=== PATIENT | male | born 1980 | race African-American/Black ===

== ENCOUNTER 2021-01-31 21:07 | Emergency (ER) | payer MEDICAID ==
--- NOTE | 2021-01-31 21:53 | EDM.PDOC ---
ED HPI GENERAL MEDICAL PROBLEM - General Chief Complaint: General Stated Complaint: LEFT SIDE PAIN Time Seen by Provider: 01/31/21 21:42 Source of Information: Reports: Patient History Limitations: Reports: Language Barrier, Other (Patient is new to the area and is a relatively poor historian and cannot say exactly which medications he takes) - History of Present Illness INITIAL COMMENTS - FREE TEXT/NARRATIVE: 40-year-old gentleman new to the area came to the emergency department due to a 2-day history of left sided abdominal/flank pain. Past medical history is significant for a stroke 1 year ago that left him with weakness on the left side of his body. He states that he recently moved to the area and has been in the car quite a bit. He also has been moving and lifting heavier objects than he normally does. He states that the pain has been present for 2 days but was so severe last night that he did not sleep well. He came to the emergency department today because he had difficulty sleeping and the pain has gotten actually worse. Also complains of mild chest pain with difficulty breathing and points to the midsternal area. He denied fever, chills, upper respiratory symptoms, change in bowel or bladder habits. He specifically denied dysuria and hematuria. He thinks that it is possible he may have strained or pulled a muscle but he is also concerned about blood clots. lateral side of the Left Lower Abdomen Pain Score (Numeric/FACES): 8 - Related Data Allergies Allergy/AdvReac Type Severity Reaction Status Date / Time No Known Allergies Allergy Verified 01/31/21 21:27 Home Meds: Home Meds . [Unable to Verify Home Med List] 01/31/21 [History] Past Medical History Cardiovascular History: Reports: Hypertension Neurological History: Reports: CVA Psychiatric History: Reports: Depression Social & Family History - Family History Family Medical History: No Pertinent Family History - Tobacco Use Tobacco Use Status *Q: Current Every Day Tobacco User Years of Tobacco use: 1 Packs/Tins Daily: 0.5 - Caffeine Use Caffeine Use: Reports: Tea - Recreational Drug Use Recreational Drug Use: Yes Recreational Drug Type: Reports: Marijuana/Hashish ED ROS GENERAL - Review of Systems Review Of Systems: See Below Constitutional: Reports: No Symptoms HEENT: Reports: No Symptoms, Vertigo Cardiovascular: Reports: Chest Pain Endocrine: Reports: No Symptoms GI/Abdominal: Reports: Abdominal Pain : Reports: No Symptoms Musculoskeletal: Reports: Muscle Pain Skin: Reports: No Symptoms Neurological: Reports: Pre-Existing Deficit, Weakness, Gait Disturbance Psychiatric: Reports: No Symptoms Hematologic/Lymphatic: Reports: No Symptoms Immunologic: Reports: No Symptoms ED EXAM, GENERAL - Physical Exam Exam: See Below Exam Limited By: Language Barrier General Appearance: Alert, Mild Distress Eye Exam: Bilateral Eye: EOMI Head: Atraumatic, Normocephalic Respiratory/Chest: No Respiratory Distress, Lungs Clear Cardiovascular: Regular Rate, Rhythm, No Murmur GI/Abdominal: Normal Bowel Sounds, Tender Back Exam: Normal Inspection. No: CVA Tenderness (R), CVA Tenderness (L) Extremities: Normal Inspection, No Pedal Edema Neurological: Alert, Oriented, CN II-XII Intact, Normal Cognition, Abnormal Gait, Sensory/Motor Deficit, Other (Left-sided weakness) Psychiatric: Normal Affect, Normal Mood Skin Exam: Warm, Dry Course - Vital Signs Text/Narrative:: Review of EKG shows normal sinus rhythm, rate 77, normal axis, likely LVH, nonpathological ST segment elevations in V1 and V2. Patient was given 324 mg chewable aspirin. Review of labs shows mildly elevated D-dimer and creatinine with GFR greater than 60. You have chest x-ray shows no obvious acute process in the lungs, possible mild pulmonary congestion more prominent in the right lower lobe with cardiac size at the upper limits of normal with prominent right ventricle. Wells score of 3. CT of chest, abdomen, pelvis showed no obvious acute abnormalities. Chest x-ray did show more than normal air in the bowel as listed above. Patient's abdominal pain may be related to bowel gas. Last Recorded V/S: Last Vital Signs Temp 36.2 C 01/31/21 21:25 Pulse 87 01/31/21 21:25 Resp 15 01/31/21 21:25 BP 140/84 01/31/21 21:25 Pulse Ox 96 01/31/21 21:25 - Orders/Labs/Meds Orders: Active Orders 24 hr Category Date Time Status CXR [Chest 2V] [CR] Stat Exams 01/31/21 22:00 Taken Chest Abdomen Pelvis w Cont [CT] Stat Exams 02/01/21 00:13 Taken Sodium Chloride 0.9% [Normal Saline] 1,000 ml Med 01/31/21 23:30 Active IV ASDIRECTED EKG 12 Lead [EK] Routine Ther 01/31/21 21:59 Ordered Medication Orders Sodium Chloride (Normal Saline) 1,000 mls @ 999 mls/hr IV ASDIRECTED ASH Last Admin: 01/31/21 23:23 Dose: 999 mls/hr Documented by: YULY Labs: Laboratory Tests 01/31/21 01/31/21 01/31/21 Range/Units 22:10 22:10 22:10 WBC 7.1 (3.2-10.1) x10-3/uL RBC 4.90 (3.90-5.90) x10(6)uL Hgb 14.7 (12.9-17.7) g/dL Hct 44.1 (38.3-50.1) % MCV 89.9 (80.8-98.7) fL MCH 29.9 (27.0-33.3) pg MCHC 33.3 (28.7-35.3) g/dL RDW 13.8 (12.4-15.0) % Plt Count 222 (117-477) x10(3)uL MPV 7.0 (6.7-11.0) fL Neut % (Auto) 69.4 (40.3-71.8) % Lymph % (Auto) 20.9 (15.8-45.3) % Moca % (Auto) 7.7 (5.5-15.2) % Eos % (Auto) 1.5 (0.1-6.8) % Baso % (Auto) 0.5 (0.3-3.8) % Neut # (Auto) 4.9 (1.7-6.9) x10-3/uL Lymph # (Auto) 1.5 (0.5-4.5) x10-3/uL Moca # (Auto) 0.5 (0.0-1.2) x10-3/uL Eos # (Auto) 0.1 (0.0-0.6) x10-3/uL Baso # (Auto) 0.0 (0.0-0.3) x10-3/uL D-Dimer, Quantitative 0.69 H (0.0-0.59) mg/LFEU Sodium 141 (135-145) mmol/L Potassium 3.7 (3.5-5.3) mmol/L Chloride 102 (100-110) mmol/L Carbon Dioxide 31 (21-32) mmol/L BUN 17 (7-18) mg/dL Creatinine 1.4 H (0.70-1.30) mg/dL Est Cr Clr Drug Dosing 62.66 mL/min Estimated GFR (MDRD) > 60 (>60) BUN/Creatinine Ratio 12.1 (9-20) Glucose 117 H (80-116) mg/dL Calcium 9.4 (8.6-10.2) mg/dL Total Bilirubin 0.6 (0.1-1.3) mg/dL AST 15 (5-25) IU/L ALT 43 H (12-36) U/L Alkaline Phosphatase 76 (56-112) IU/L Troponin I (4.0-60.3) pg/mL NT-Pro-B Natriuret Pep (<=125) pg/mL Total Protein 7.8 (6.0-8.0) g/dL Albumin 3.8 (3.5-5.2) g/dL Globulin 4.0 g/dL Albumin/Globulin Ratio 1.0 Urine Color (YELLOW) Urine Appearance (CLEAR) Urine pH (5.0-6.5) Ur Specific Melvin (1.010-1.025) Urine Protein (NEGATIVE) mg/dL Urine Glucose (UA) (NORMAL) mg/dL Urine Ketones (NEGATIVE) mg/dL Urine Occult Blood (NEGATIVE) Urine Nitrite (NEGATIVE) Urine Bilirubin (NEGATIVE) Urine Urobilinogen (NEGATIVE) mg/dL Ur Leukocyte Esterase (NEGATIVE) U Hyaline Cast (Auto) (NS) Urine RBC (0-5) Urine WBC (0-5) Ur Squamous Epith Cells (NS,R,O) Urine Bacteria (NS) Urine Mucus (NS) 01/31/21 01/31/21 Range/Units 22:10 22:10 WBC (3.2-10.1) x10-3/uL RBC (3.90-5.90) x10(6)uL Hgb (12.9-17.7) g/dL Hct (38.3-50.1) % MCV (80.8-98.7) fL MCH (27.0-33.3) pg MCHC (28.7-35.3) g/dL RDW (12.4-15.0) % Plt Count (117-477) x10(3)uL MPV (6.7-11.0) fL Neut % (Auto) (40.3-71.8) % Lymph % (Auto) (15.8-45.3) % Moca % (Auto) (5.5-15.2) % Eos % (Auto) (0.1-6.8) % Baso % (Auto) (0.3-3.8) % Neut # (Auto) (1.7-6.9) x10-3/uL Lymph # (Auto) (0.5-4.5) x10-3/uL Moca # (Auto) (0.0-1.2) x10-3/uL Eos # (Auto) (0.0-0.6) x10-3/uL Baso # (Auto) (0.0-0.3) x10-3/uL D-Dimer, Quantitative (0.0-0.59) mg/LFEU Sodium (135-145) mmol/L Potassium (3.5-5.3) mmol/L Chloride (100-110) mmol/L Carbon Dioxide (21-32) mmol/L BUN (7-18) mg/dL Creatinine (0.70-1.30) mg/dL Est Cr Clr Drug Dosing mL/min Estimated GFR (MDRD) (>60) BUN/Creatinine Ratio (9-20) Glucose (80-116) mg/dL Calcium (8.6-10.2) mg/dL Total Bilirubin (0.1-1.3) mg/dL AST (5-25) IU/L ALT (12-36) U/L Alkaline Phosphatase (56-112) IU/L Troponin I 5.9 (4.0-60.3) pg/mL NT-Pro-B Natriuret Pep 24 (<=125) pg/mL Total Protein (6.0-8.0) g/dL Albumin (3.5-5.2) g/dL Globulin g/dL Albumin/Globulin Ratio Urine Color Yellow (YELLOW) Urine Appearance Slightly cloudy (CLEAR) Urine pH 5.0 (5.0-6.5) Ur Specific Melvin 1.030 H (1.010-1.025) Urine Protein Negative (NEGATIVE) mg/dL Urine Glucose (UA) Normal (NORMAL) mg/dL Urine Ketones Negative (NEGATIVE) mg/dL Urine Occult Blood Negative (NEGATIVE) Urine Nitrite Negative (NEGATIVE) Urine Bilirubin Negative (NEGATIVE) Urine Urobilinogen 1 H (NEGATIVE) mg/dL Ur Leukocyte Esterase Negative (NEGATIVE) U Hyaline Cast (Auto) Rare H (NS) Urine RBC 0-5 (0-5) Urine WBC 0-5 (0-5) Ur Squamous Epith Cells Occasional (NS,R,O) Urine Bacteria Few H (NS) Urine Mucus Rare H (NS) Meds: Medications Generic Name Dose Route Start Last Admin Trade Name Freq PRN Reason Stop Dose Admin Sodium Chloride 1,000 mls @ 999 mls/hr 01/31/21 23:30 01/31/21 23:23 Normal Saline IV 999 mls/hr ASDIRECTED ASH Administration Discontinued Medications Generic Name Dose Route Start Last Admin Trade Name Freq PRN Reason Stop Dose Admin Aspirin 324 mg 01/31/21 22:34 01/31/21 22:52 Aspirin 81 Mg Tab.Chew PO 01/31/21 22:35 324 mg ONETIME ONE Administration Iopamidol 75 ml 01/31/21 23:31 02/01/21 00:24 Iopamidol 755 Mg/Ml 75 Ml Bottle IV 01/31/21 23:32 Not Given ASDIRECTED ONE Iopamidol 100 ml 02/01/21 00:23 02/01/21 00:42 Iopamidol 755 Mg/Ml 100 Ml Bottle IV 02/01/21 00:24 100 ml . DIRECTED ONE Administration Departure - Departure Time of Disposition: 01:55 Disposition: Home, Self-Care 01 Condition: Good Clinical Impression: Abdominal pain - Discharge Information *PRESCRIPTION DRUG MONITORING PROGRAM REVIEWED*: Not Applicable *COPY OF PRESCRIPTION DRUG MONITORING REPORT IN PATIENT VALERIA: Not Applicable Instructions: Flank Pain, Adult, [id number], Abdominal Pain, Adult, Easy-to- Read Referrals: PCP,None [Primary Care Provider] - Forms: ED Department Discharge Additional Instructions: Pulmonary embolism and other acute findings have been ruled out. I advised the patient to drink plenty of fluids and try using stool softeners or MiraLAX to have soft, well-formed, easy to pass bowel movements. I advised the patient that laboratory testing showed that he had a mildly elevated creatinine. He has no history of renal disease. I advised him to follow-up with his primary care physician. Sepsis Event Note (ED) - Evaluation Sepsis Screening Result: No Definite Risk - Focused Exam Vital Signs: Vital Signs Temp Pulse Resp BP Pulse Ox 01/31/21 21:25 36.2 C 87 15 140/84 96 - My Orders Last 24 Hours: My Active Orders 01/31/21 21:59 EKG 12 Lead [EK] Routine 01/31/21 22:00 CXR [Chest 2V] [CR] Stat 01/31/21 23:30 Sodium Chloride 0.9% [Normal Saline] 1,000 ml IV ASDIRECTED 02/01/21 00:13 Chest Abdomen Pelvis w Cont [CT] Stat - Assessment/Plan Last 24 Hours: My Active Orders 01/31/21 21:59 EKG 12 Lead [EK] Routine 01/31/21 22:00 CXR [Chest 2V] [CR] Stat 01/31/21 23:30 Sodium Chloride 0.9% [Normal Saline] 1,000 ml IV ASDIRECTED 02/01/21 00:13 Chest Abdomen Pelvis w Cont [CT] Stat
--- NOTE | 2021-01-31 22:31 | PCM.EKG ---
#1 Interpretation EKG Date: 01/31/21 Time: 22:17 EKG Interpretation Comments: Normal sinus rhythm, rate 77, normal axis, likely LVH, ST T-segment abnormalities in the inferior leads, nonpathological ST elevation in V1 and V2
[2021-01-31] MEDS ORDERED: Aspirin 81 MG Tab.Chew PO ONE (22:34)
[2021-01-31] MEDS ORDERED: Sodium Chloride 0.9% 1,000 ML IV SCH (23:30)
[2021-01-31] MEDS ORDERED: Iopamidol 755 Mg/ML 75 ML Bottle IV ONE (23:31)
[2021-02-01] MEDS ORDERED: Iopamidol 755 Mg/ML 100 ML Bottle IV ONE (00:23)
== END 2021-02-01 02:10 | disposition home or self-care (01) ==
LOC: FB.ED 21:07
DX: R10.32 Left lower quadrant pain (principal); I10 Essential (primary) hypertension; F17.210 Nicotine dependence, cigarettes, uncomplicated; Z86.73 Personal history of transient ischemic attack (TIA), and cerebral infarction without residual deficits
CPT/HCPCS: 36415; 71046; 71260; 74177; 80053; 81001; 83880; 84484; 85025; 85379; 93005; 99285; A9270; J7030; Q9967

== ENCOUNTER 2021-02-27 14:50 | Emergency (ER) | payer MEDICAID ==
--- NOTE | 2021-02-27 15:04 | EDM.PDOC ---
ED HPI GENERAL MEDICAL PROBLEM - General Stated Complaint: Atrial fibrillation Time Seen by Provider: 02/27/21 15:00 Source of Information: Reports: Patient History Limitations: Reports: Altered Mental Status (Is unable to give history but he is lethargic and slow to answer questions.) - History of Present Illness INITIAL COMMENTS - FREE TEXT/NARRATIVE: 40-year-old male who presents to the emergency department via ambulance from his home with complaints of dizziness and vomiting. He patient is rather lethargic and it is difficult to get a history from him. He is slow to respond and he speaks in short sentences but I am able to get some history from him. He reports that at 8 AM, he awoke and he was feeling very dizzy. He reports he was feeling that the room was spinning. He also felt very tired and he had a total head headache. He reports it was dull and throbbing and he really couldn't quantitate it or qualitate it anymore than this. He reports that he has been in bed pretty much since then. Beginning at about noon he started to have nausea with vomiting and he has had multiple episodes of vomiting he reports that he tried to get up to walk and he fell. There was no loss of consciousness but he just could not walk and maintain his balance. In. He denies any shortness of breath. The patient tells me that he felt his normal self yesterday. He had no headache or vision problems or any dizziness at that time. This is really all of the history that I can obtain from the patient. There are no other associated signs or symptoms. There are no other modifying factors. 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 [Unable to Verify Home Med List] 01/31/21 [History] Past Medical History Cardiovascular History: Reports: Hypertension Neurological History: Reports: Cerebral Aneurysms, CVA Psychiatric History: Reports: Depression Endocrine/Metabolic History: Reports: Diabetes, Type II Immunologic History: Reports: HIV (Patient has been HIV positive for the past 20-30 years.) - Past Surgical History Other Neurological Surgeries/Procedures: Craniotomy for aneurysm clipping. 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 Social & Family History - Tobacco Use Tobacco Use Status *Q: Current Every Day Tobacco User - Caffeine Use Caffeine Use: Reports: Tea - Alcohol Use Alcohol Use History: Yes Alcohol Use Frequency: Socially - Living Situation & Occupation Living situation: Reports: Single Occupation: Employed Social History Comment: Patient just recently moved from [place] 2 months ago. ED ROS GENERAL - Review of Systems Review Of Systems: See Below Constitutional: Denies: Fever, Chills HEENT: Denies: Eye Pain Respiratory: Denies: Shortness of Breath, Cough Cardiovascular: Reports: Lightheadedness. Denies: Chest Pain GI/Abdominal: Reports: Nausea, Vomiting. Denies: Abdominal Pain : Reports: Incontinence (Patient was incontinent of urine per EMS.). Denies: Dysuria Musculoskeletal: Denies: Neck Pain, Back Pain Skin: Reports: Diaphoresis. Denies: Rash Neurological: Reports: Confusion, Dizziness, Headache, Difficulty Walking, Gait Disturbance Hematologic/Lymphatic: Denies: Easy Bleeding, Easy Bruising ED EXAM, GENERAL - Physical Exam Exam: See Below Exam Limited By: No Limitations General Appearance: WD/WN, Lethargic, Moderate Distress (Active emesis during my exam.) Eye Exam: Right Eye: Other (Sclera are anicteric; right pupil is about 4 mm and sluggish. Left pupil is about 2 mm), Bilateral Eye: Nystagmus (Horizontal nystagmus bilaterally.) Ears: Normal External Exam Ear Exam: Bilateral Ear: Auricle Normal Nose: Normal Inspection, Normal Mucosa, No Blood Throat/Mouth: Normal Voice, No Airway Compromise, Other (Driving his membranes.) Head: Atraumatic, Normocephalic, Other (He has had previous craniotomy on the left.) Neck: Normal Inspection, Supple, Non-Tender, Full Range of Motion Respiratory/Chest: No Respiratory Distress, Lungs Clear, Normal Breath Sounds, No Accessory Muscle Use, Chest Non-Tender Cardiovascular: No Edema, No Murmur, Tachycardia, Irregularly Irregular Peripheral Pulses: 2+: Brachial (R), Radial (L), Dorsalis Pedis (L), Dorsalis Pedis (R) GI/Abdominal: Normal Bowel Sounds, Soft, Non-Tender, No Mass Back Exam: Normal Inspection Extremities: Normal Inspection, Normal Range of Motion, Non-Tender, No Pedal Edema, Normal Capillary Refill Neurological: CN II-XII Intact, Inattentive, Slow to Respond, Other (Left sided weakness which is chronic. He appears to be 4/5 in both left upper and lower extremity compared to 5/5 on the right) Psychiatric: Flat Affect Skin Exam: Intact, Normal Color, No Rash, Diaphoretic #1 Interpretation EKG Date: 02/27/21 Time: 14:48 Rhythm: A-Fib Rate (Beats/Min): 158 [place]: Normal P-Wave: Absent QRS: Normal ST-T: Other (LVH with repolarization abnormality.) QT: Normal Comparison: Change From Previous EKG (Compared to an EKG on 01/31/2021, the A. fib with RVR is new.) Course - Vital Signs Last Recorded V/S: Last Vital Signs Temp 36.6 C 02/27/21 14:50 Pulse 148 H 02/27/21 14:50 Resp 18 02/27/21 14:50 BP 144/90 H 02/27/21 14:50 Pulse Ox 97 02/27/21 14:50 - Orders/Labs/Meds Labs: Laboratory Tests 02/27/21 02/27/21 02/27/21 Range/Units 14:55 14:58 14:58 WBC 7.6 (3.2-10.1) x10-3/uL RBC 4.96 (3.90-5.90) x10(6)uL Hgb 14.7 (12.9-17.7) g/dL Hct 44.8 (38.3-50.1) % MCV 90.3 (80.8-98.7) fL MCH 29.6 (27.0-33.3) pg MCHC 32.8 (28.7-35.3) g/dL RDW 13.6 (12.4-15.0) % Plt Count 208 (117-477) x10(3)uL MPV 7.2 (6.7-11.0) fL Neut % (Auto) 55.3 (40.3-71.8) % Lymph % (Auto) 32.9 (15.8-45.3) % [place] % (Auto) 9.6 (5.5-15.2) % Eos % (Auto) 1.8 (0.1-6.8) % Baso % (Auto) 0.4 (0.3-3.8) % Neut # (Auto) 4.2 (1.7-6.9) x10-3/uL Lymph # (Auto) 2.5 (0.5-4.5) x10-3/uL [place]ick # (Auto) 0.7 (0.0-1.2) x10-3/uL Eos # (Auto) 0.1 (0.0-0.6) x10-3/uL Baso # (Auto) 0.0 (0.0-0.3) x10-3/uL PT 10.3 (9.0-11.1) sec INR 0.95 L (1.00-1.24) APTT 20.0 L (24.4-33.2) SECONDS Sodium (135-145) mmol/L Potassium (3.5-5.3) mmol/L Chloride (100-110) mmol/L Carbon Dioxide (21-32) mmol/L BUN (7-18) mg/dL Creatinine (0.70-1.30) mg/dL Est Cr Clr Drug Dosing Estimated GFR (MDRD) (>60) BUN/Creatinine Ratio (9-20) Glucose (80-116) mg/dL POC Glucose 198 H (80-116) mg/dL Calcium (8.6-10.2) mg/dL Magnesium (1.8-2.5) mg/dL Total Bilirubin (0.1-1.3) mg/dL AST (5-25) IU/L ALT (12-36) U/L Alkaline Phosphatase (56-112) IU/L Troponin I (4.0-60.3) pg/mL Total Protein (6.0-8.0) g/dL Albumin (3.5-5.2) g/dL Globulin g/dL Albumin/Globulin Ratio Urine Color (YELLOW) Urine Appearance (CLEAR) Urine pH (5.0-6.5) Ur Specific [place] (1.010-1.025) Urine Protein (NEGATIVE) mg/dL Urine Glucose (UA) (NORMAL) mg/dL Urine Ketones (NEGATIVE) mg/dL Urine Occult Blood (NEGATIVE) Urine Nitrite (NEGATIVE) Urine Bilirubin (NEGATIVE) Urine Urobilinogen (NEGATIVE) mg/dL Ur Leukocyte Esterase (NEGATIVE) Urine RBC (0-5) Urine WBC (0-5) Ur Squamous Epith Cells (NS,R,O) Urine Bacteria (NS) 02/27/21 02/27/21 02/27/21 Range/Units 14:58 14:58 17:18 WBC (3.2-10.1) x10-3/uL RBC (3.90-5.90) x10(6)uL Hgb (12.9-17.7) g/dL Hct (38.3-50.1) % MCV (80.8-98.7) fL MCH (27.0-33.3) pg MCHC (28.7-35.3) g/dL RDW (12.4-15.0) % Plt Count (117-477) x10(3)uL MPV (6.7-11.0) fL Neut % (Auto) (40.3-71.8) % Lymph % (Auto) (15.8-45.3) % [place] % (Auto) (5.5-15.2) % Eos % (Auto) (0.1-6.8) % Baso % (Auto) (0.3-3.8) % Neut # (Auto) (1.7-6.9) x10-3/uL Lymph # (Auto) (0.5-4.5) x10-3/uL [place] # (Auto) (0.0-1.2) x10-3/uL Eos # (Auto) (0.0-0.6) x10-3/uL Baso # (Auto) (0.0-0.3) x10-3/uL PT (9.0-11.1) sec INR (1.00-1.24) APTT (24.4-33.2) SECONDS Sodium 143 (135-145) mmol/L Potassium 2.9 L (3.5-5.3) mmol/L Chloride 104 (100-110) mmol/L Carbon Dioxide 28 (21-32) mmol/L BUN 16 (7-18) mg/dL Creatinine 1.3 (0.70-1.30) mg/dL Est Cr Clr Drug Dosing TNP Estimated GFR (MDRD) > 60 (>60) BUN/Creatinine Ratio 12.3 (9-20) Glucose 195 H (80-116) mg/dL POC Glucose (80-116) mg/dL Calcium 8.7 (8.6-10.2) mg/dL Magnesium 2.0 (1.8-2.5) mg/dL Total Bilirubin 0.6 (0.1-1.3) mg/dL AST 8 D (5-25) IU/L ALT 28 D (12-36) U/L Alkaline Phosphatase 78 (56-112) IU/L Troponin I 5.8 (4.0-60.3) pg/mL Total Protein 7.6 (6.0-8.0) g/dL Albumin 3.7 (3.5-5.2) g/dL Globulin 3.9 g/dL Albumin/Globulin Ratio 1.0 Urine Color Yellow (YELLOW) Urine Appearance Clear (CLEAR) Urine pH 6.0 (5.0-6.5) Ur Specific [place] 1.015 (1.010-1.025) Urine Protein Negative (NEGATIVE) mg/dL Urine Glucose (UA) >1000 H (NORMAL) mg/dL Urine Ketones Negative (NEGATIVE) mg/dL Urine Occult Blood Negative (NEGATIVE) Urine Nitrite Negative (NEGATIVE) Urine Bilirubin Negative (NEGATIVE) Urine Urobilinogen Normal (NEGATIVE) mg/dL Ur Leukocyte Esterase Negative (NEGATIVE) Urine RBC 0-5 (0-5) Urine WBC 0-5 (0-5) Ur Squamous Epith Cells Occasional (NS,R,O) Urine Bacteria Rare H (NS) Meds: Medications Discontinued Medications Generic Name Dose Route Start Last Admin Trade Name Freq PRN Reason Stop Dose Admin Diltiazem HCl 20 mg 02/27/21 15:26 02/27/21 15:48 Diltiazem 25 Mg/5 Ml Sdv IVPUSH 02/27/21 15:27 20 mg ONETIME ONE Administration Diltiazem HCl 20 mg 02/27/21 16:15 02/27/21 17:00 Diltiazem 25 Mg/5 Ml Sdv IVPUSH 02/27/21 16:16 20 mg ONETIME ONE Administration Sodium Chloride 1,000 mls @ 125 mls/hr 02/27/21 15:45 02/27/21 17:10 Normal Saline IV 125 mls/hr ASDIRECTED ASH Administration Diltiazem HCl 125 mg/ Sodium 125 mls @ 5 mls/hr 02/27/21 16:15 02/27/21 17:31 Chloride IV 10 mg/hr TITRATE ASH 10 mls/hr Titration Protocol 5 MG/HR Metoclopramide HCl 10 mg 02/27/21 15:19 02/27/21 15:21 Metoclopramide 10 Mg/2 Ml Sdv IVPUSH 02/27/21 15:20 10 mg ONETIME ONE Administration Pantoprazole Sodium 40 mg 02/27/21 17:23 02/27/21 17:31 Pantoprazole 40 Mg Vial IVPUSH 02/27/21 17:24 40 mg ONETIME ONE Administration Sodium Chloride 10 ml 02/27/21 15:21 Sodium Chloride 0.9% 10 Ml Syringe FLUSH ASDIRECTED PRN Keep Vein Open - Radiology Interpretation Free Text/Narrative:: CT scan of the head showed no acute intracranial hemorrhage or mass effect. 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 There are small age indeterminate lacunar infarcts within the cerebellar hemispheres there are multiple chronic i nfarctions within the right cerebral hemisphere. This was per the [facility] radiologist. - Re-Assessments/Exams Free Text/Narrative Re-Assessment/Exam: 02/27/21 15:35: The patient was given diltiazem 20 mg IV. The patient is being sent for a CT scan now. White blood cell count is 7.6. Hemoglobin is 14.7. Platelet count is normal. 95. PTT is 20. Sodium is 143. Potassium is 2.9. Bicarbonate is 28. BUN is 16 and creatinine is 1.3. Glucose is 195. LFTs are normal. The patient has also been given Reglan 10 mg IV. He remains tachycardic in the 140-160 range with A. fib/RVR. I am awaiting the CT scan of the head. 02/27/21 16:15: CT scan of the head shows no definite bleed per my read. I'm awaiting the official result. The patient is still in A. fib with RVR with a rate in the 140-160 range after the 20 mg of diltiazem initially. I will give the patient diltiazem 20 more milligrams IV and placed him on a diltiazem drip. The patient did have another episode of emesis but he did feel better after this and reports no nausea present. 02/27/21 17:20: I called and discussed the patient's case with Dr. Darby, stroke neurologist at present in [place], and he felt that the patient was likely having a cerebellar or brainstem infarct and felt the patient should be transferred to or further evaluation and immediate MRI. The patient has just been placed on the diltiazem drip and his pulse rate is in the 120s still. He that up the patient will need to be transferred via ALS ambulance to [facility] in [place] emergency department for the above and for further evaluation and admission to their hospital with appropriate interventions as deemed necessary. 02/27/21 17:45: EMS is her to transport the patient. The patient's urine came back negative except for glucose in the urine. The patient remains neurologically stable with continued lethargy but verbally responsive. He is moving all 4 extremities with the left upper and lower she may being weaker than the right. He currently reports no nausea. Heart rate is still in the 120 range and he is on a diltiazem drip. Blood pressure was also 159/92. I discussed all of this stuff with the patient and he is in agreement with plan for transfer to [facility] in [place]. Departure - Departure Time of Disposition: 17:45 Disposition: DC/Tfer to Acute Hospital 02 Reason for Transfer *Q: Other (Patient with acute stroke and needing interventional stroke neurologist.) Condition: Critical Clinical Impression: Atrial fibrillation with RVR, Acute CVA (cerebrovascular accident), Hypokalemia Diabetes mellitus type 2, uncontrolled Qualifiers: Glycemic state: with hyperglycemia Qualified Code(s): E11.65 - Type 2 diabetes mellitus with hyperglycemia Referrals: PCP,None [Primary Care Provider] - Forms: ED Department Discharge Critical Care Note - Critical Care Note Total Time (mins): 80 Comments: Patient attended closely initially and following CT scan. Multiple interventions made. Total critical care time spent with the patient was 80 minutes.
[2021-02-27] MEDS ORDERED: Metoclopramide 10 MG/2 ML SDV IVPUSH ONE (15:19)
[2021-02-27] MEDS ORDERED: Sodium Chloride 0.9% 10 ML Syringe FLUSH PRN (15:21)
[2021-02-27] MEDS ORDERED: Diltiazem 25 MG/5 ML SDV IVPUSH ONE ×2 (15:26→16:15)
[2021-02-27] MEDS ORDERED: Sodium Chloride 0.9% 1,000 ML IV SCH (15:45)
[2021-02-27] MEDS ORDERED: Diltiazem 125 MG in Sodium Chloride 0.9% 100 ML IV SCH (16:15)
[2021-02-27 16:20] VITALS: BP 144/90; PULSE 148
[2021-02-27] MEDS ORDERED: Pantoprazole 40 MG Vial IVPUSH ONE (17:23)
== END 2021-02-27 17:38 ==
LOC: FB.ED 14:50
DX: I63.9 Cerebral infarction, unspecified (principal); E11.65 Type 2 diabetes mellitus with hyperglycemia; I48.91 Unspecified atrial fibrillation; E87.6 Hypokalemia; I10 Essential (primary) hypertension; Z72.0 Tobacco use; Z86.73 Personal history of transient ischemic attack (TIA), and cerebral infarction without residual deficits
CPT/HCPCS: 36415; 70450; 80053; 81001; 82947; 83735; 84484; 85025; 85610; 85730; 93005; 96365; 96375; 96376; 99285-25; C9113; J2765; J3490; J7030